=== PATIENT | female | born 1955 | race Caucasian/White ===

== ENCOUNTER → 2016-03-11 | Outpatient (CLI) | payer BC ==
[~2016-03-11] MED LIST: ASPCH81X PO; ATEN-173 PO; ESCI1TAB6 PO; LEVO75TA PO; LOVA20TA4 PO; MULT-506 PO; VITA400C3 PO; [UNRECOGNIZED DRUG - OTHER] PO
[2016-03-11 12:05] LABS: URINE APPEARANCE CLEAR (CLEAR); URINE BILIRUBIN NEG (NEG); URINE COLOR YELLOW; URINE NITRITE NEG (NEG); UROBILINOGEN NEG (NEG)
[2016-03-11 12:08] LABS: MANUAL MICROSCOPIC REQUIRED? NO; REVIEW REQ? NO
== END | disposition home or self-care (01) ==
LOC: C.LABSPEC 11:03
PROVIDERS: ATTEND Family Medicine
DX: Z15.09 Genetic susceptibility to other malignant neoplasm (principal)

== ENCOUNTER → 2016-05-12 | Day surgery (SDC) | payer BC ==
[2016-05-04 10:29] VITALS: Ht 160 cm; Wt 63.6 kg
[~2016-05-12] VITALS: Ht 160 cm; Wt 63.6 kg
[~2016-05-12] MED LIST changes: +AZEL0.15 NAE; +CALC600T9 PO; +HYDR-5688 PO; +LIDOCAINE HCL 2% 2 ML VIAL (20MG/ML) ONE; +LISI-725 PO; +LORA-741 PO; +MIDAZOLAM HCL 1 MG/ML 2ML VIAL ONE; +PROPOFOL IV EMULSION 10 MG/ML 20 ML VIAL IV ONE; +TRAM-10 PO
--- NOTE | 2016-05-12 16:21 | Endo History and Physical ---
History & Physical Date of Service: May 12, 2016. 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 Past Surgical History Hx Cardiac Surgery: No Hx Internal Defibrillator: No Hx Pacemaker: No Hx Abdominal Surgery: Yes ([facility] BSO) Hx of Implantable Prosthesis: No Hx Post-Op Nausea and Vomiting: No Hx Cancer Surgery: No Hx Thoracic Surgery: No Hx Orthopedic: Yes ([facility]) Hx Urinary Tract Surgery: No Family History Colon CA, Polyp Social History Smoking Status: Never Smoker Hx Substance Use: No Hx Alcohol Use: Yes (RARELY) Allergies Coded Allergies: No Known Allergies (Unverified , 05/12/16) Current Medications Reported Home Medications Medications Dose Route/Sig Max Daily Dose Days Date Category Mevacor (Lovastatin) 20 Mg Tab 20 Mg PO QPM 05/04/16 Reported Tenormin (Atenolol) 25 Mg Tab 25 Mg PO QPM 05/04/16 Reported Synthroid (Levothyroxine Sodium) 75 Mcg Tab 75 Mcg PO QAM 05/04/16 Reported Lexapro (Escitalopram Oxalate) 5 Mg Tab 5 Mg PO QAM 05/04/16 Reported Vitamin E 400 Iu (Vitamin E) 400 Unit Cap 400 Inter.unit PO QAM 05/04/16 Reported Multivitamin (Multivitamins) Tab 1 Tab PO QAM 05/04/16 Reported [Liver Health Complex] 2 Tab PO QAM 05/04/16 Reported Aspirin Chewable (Aspirin) 81 Mg Chew 81 Mg PO QAM 05/04/16 Reported Vital Signs Weight (Kilograms): 63.64 Height (Feet): 5 Height (Inches): 3 Date Time Temp Pulse Resp B/P Pulse Ox O2 Delivery O2 Flow Rate FiO2 05/12/16 15:10 36.5 84 20 150/82 99 Room Air Physical Exam General Appearance: WD/WN, no apparent distress Respiratory/Chest: Auscultation: breath sounds normal Cardiovascular: Heart Auscultation: RRR Abdomen: Bowel Sounds: normal Inspection & Palpation: soft, non-distended, no tenderness, guarding & rebound Assessment and Plan Assessment: 60 yo CF who 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 Plan: Proceed with EGD and colonoscopy.
--- NOTE | 2016-05-12 16:28 | GI REPORT ---
Procedure Date: 05/12/2016 4:00 PM Procedure: Upper GI endoscopy Indications: Hereditary nonpolyposis colorectal cancer (Church Syndrome) Medicines: Monitored Anesthesia Care Complications: No immediate complications. Estimated Blood Loss: Estimated blood loss: none. Procedure: Pre-Anesthesia Assessment: - Prior to the procedure, a History and Physical was performed, and patient medications and allergies were reviewed. The patient's tolerance of previous anesthesia was also reviewed. The risks and benefits of the procedure and the sedation options and risks were discussed with the patient. All questions were answered, and informed consent was obtained. Prior Anticoagulants: The patient has taken aspirin, last dose was 7 days prior to procedure. ASA Grade Assessment: II - A patient with mild systemic disease. After reviewing the risks and benefits, the patient was deemed in satisfactory condition to undergo the procedure. After obtaining informed consent, the endoscope was passed under direct vision. Throughout the procedure, the patient's blood pressure, pulse, and oxygen saturations were monitored continuously. The scope was introduced through the mouth, and advanced to the second part of duodenum. The upper GI endoscopy was accomplished without difficulty. The patient tolerated the procedure well. Findings: A non-obstructing Schatzki ring (acquired) was found at the gastroesophageal junction. A small hiatus hernia was present. The examined duodenum was normal. Impression: - Non-obstructing Schatzki ring. - Small hiatus hernia. - Normal examined duodenum. - No specimens collected. Recommendation: - Resume previous diet. - Continue present medications. - Repeat the upper endoscopy in 1 year for surveillance. - Return to primary care physician as previously scheduled. Florencio Rowan, DO 05/12/2016 4:27:49 PM This report has been signed electronically. Note Initiated On: 05/12/2016 4:00 PM I attest to the content of the Intraoperative Record and orders documented therein, exceptions below
--- NOTE | 2016-05-12 16:49 | GI REPORT ---
Procedure Date: 05/12/2016 4:00 PM Procedure: Colonoscopy Indications: High risk colon cancer surveillance: Personal history of hereditary nonpolyposis colorectal cancer (Church Syndrome) Medicines: Monitored Anesthesia Care Complications: No immediate complications. Estimated Blood Loss: Estimated blood loss: none. Procedure: Pre-Anesthesia Assessment: - Prior to the procedure, a History and Physical was performed, and patient medications and allergies were reviewed. The patient's tolerance of previous anesthesia was also reviewed. The risks and benefits of the procedure and the sedation options and risks were discussed with the patient. All questions were answered, and informed consent was obtained. Prior Anticoagulants: The patient has taken aspirin, last dose was 7 days prior to procedure. ASA Grade Assessment: II - A patient with mild systemic disease. After reviewing the risks and benefits, the patient was deemed in satisfactory condition to undergo the procedure. After I obtained informed consent, the scope was passed under direct vision. Throughout the procedure, the patient's blood pressure, pulse, and oxygen saturations were monitored continuously. The On-site loaner was introduced through the anus and advanced to the terminal ileum. The colonoscopy was performed without difficulty. The patient tolerated the procedure well. The quality of the bowel preparation was good. The terminal ileum, ileocecal valve, appendiceal orifice, and rectum were photographed. Findings: Three sessile polyps were found in the transverse colon and in the ascending colon. The polyps were 4 to 6 mm in size. These polyps were removed with a hot snare. Resection was complete, but the polyp tissue was only partially retrieved. Multiple small-mouthed diverticula were found in the sigmoid colon. Impression: - Three 4 to 6 mm polyps in the transverse colon and in the ascending colon, removed with a hot snare. Complete resection. Partial retrieval. - Diverticulosis in the sigmoid colon. Recommendation: - Resume previous diet. - Continue present medications. - Repeat colonoscopy for surveillance based on pathology results. - Return to primary care physician as previously scheduled. Florencio Rowan, DO 05/12/2016 4:48:56 PM This report has been signed electronically. Note Initiated On: 05/12/2016 4:00 PM I attest to the content of the Intraoperative Record and orders documented therein, exceptions below
--- NOTE | 2016-05-12 16:51 | Discharge Instructions ---
Endoscopy Patient Instructions Date / Procedure(s) Performed May 12, 2016. Colonoscopy, EGD Allergy Information Coded Allergies: No Known Allergies (Unverified , 05/12/16) Discharge Date / Findings May 12, 2016. EGD: Hiatal hernia, Non-obstructing Schatzki's Ring Colonoscopy: Colon polyps, Diverticulosis Medication Instructions OK to resume all medications today as prescribed Reported Home Medications Medications Dose Route/Sig Max Daily Dose Days Date Category Mevacor (Lovastatin) 20 Mg Tab 20 Mg PO QPM 05/04/16 Reported Tenormin (Atenolol) 25 Mg Tab 25 Mg PO QPM 05/04/16 Reported Synthroid (Levothyroxine Sodium) 75 Mcg Tab 75 Mcg PO QAM 05/04/16 Reported Lexapro (Escitalopram Oxalate) 5 Mg Tab 5 Mg PO QAM 05/04/16 Reported Vitamin E 400 Iu (Vitamin E) 400 Unit Cap 400 Inter.unit PO QAM 05/04/16 Reported Multivitamin (Multivitamins) Tab 1 Tab PO QAM 05/04/16 Reported [Liver Health Complex] 2 Tab PO QAM 05/04/16 Reported Aspirin Chewable (Aspirin) 81 Mg Chew 81 Mg PO QAM 05/04/16 Reported Provider Instructions Activity Restrictions - No exercising or heavy lifting for 24 hours. - Do not drink alcohol the day of the procedure. - Do not drive a car or operate machinery until the day after the procedure. - Do not make any important decisions or sign important papers in 24 hours after the procedure. Following Day: - Return to full activity which may include returning to work/school. Diet Start your diet with liquids and light foods (jello, soup, juice, toast). Then eat your usual diet if not nauseated. Treatment For Common After Affects For mild abdominal pain, bloating, or excessive gas: - Rest - Eat lightly - Lie on right side Follow-Up Information Follow-up with Ariel as scheduled Anesthesia Information What You Should Know You have had a procedure that required some medicine to reduce anxiety and discomfort. This treatment is called moderate sedation. After receiving the treatment, you may be sleepy, but you will be able to breathe on your own. The effects of the treatment may last for several hours. Follow these instructions along with Activity/Diet recommendations noted above: * Do NOT do anything where dizziness or clumsiness would be dangerous. * Rest quietly at home today, then you can be up and about tomorrow. * Have a responsible person stay with you the rest of today. * You may have had an I.V. today. If so, you may take the dressing off later today. Recommendations Call your doctor if: * Trouble breathing * Continuous vomiting for more than 24 hours * Temperature above 101 degrees * Severe abdominal pain or bloating * Pain not relieved by pain medicine ordered * There is increased drainage or redness from any incision * A large amount of rectal bleeding greater than 2-3 tablespoons. (If you had a polyp/s removed or have hemorrhoids, a small amount of blood - from the rectum is to be expected.) * You have any unanswered questions or concerns. IN THE EVENT OF A SERIOUS EMERGENCY, GO TO THE NEAREST EMERGENCY ROOM Your discharge instructions were prepared by provider Florencio Rowan. Patient Instructions Signature Page Ros Burnett Patient (or Guardian) Signature/Date: I have read and understand the instructions given to me by my caregivers. Caregiver/RN/Doctor Signature/Date: The above-named patient and/or guardian has received patient instructions on this date. + Original Patient Signature Page (only) stays with chart. Please make copy for patient.
--- NOTE | 2016-05-12 17:18 | Anesthesiology Progress Note ---
Anesthesia Post Op Note Date & Time May 12, 2016 at 17:19 Vital Signs Pain Intensity: 0 Vital Signs Past 12 Hours Date Time Temp Pulse Resp B/P Pulse Ox O2 Delivery O2 Flow Rate FiO2 05/12/16 17:09 72 20 150/75 98 Room Air 05/12/16 16:57 73 20 129/70 99 Room Air 05/12/16 15:10 36.5 84 20 150/82 99 Room Air Notes Mental Status: alert / awake / arousable, participated in evaluation Pt Amnestic to Procedure: Yes Nausea / Vomiting: adequately controlled Pain: adequately controlled Airway Patency, RR, SpO2: stable & adequate BP & HR: stable & adequate Hydration State: stable & adequate Anesthetic Complications: no major complications apparent
[2016-05-12 17:26] VITALS: BP 142/70; PULSE 70; O2SAT 99
== END | disposition home or self-care (01) ==
LOC: C.GI 14:15
PROVIDERS: ATTEND Internal Medicine
DX: Z12.11 Encounter for screening for malignant neoplasm of colon (principal); Z15.09 Genetic susceptibility to other malignant neoplasm; D12.2 Benign neoplasm of ascending colon; K22.2 Esophageal obstruction; D12.3 Benign neoplasm of transverse colon; K57.30 Diverticulosis of large intestine without perforation or abscess without bleeding; K44.9 Diaphragmatic hernia without obstruction or gangrene; Z84.81 Family history of carrier of genetic disease

== ENCOUNTER 2016-08-01 14:21 | Emergency (ER) | payer BC ==
[~2016-08-01] VITALS: Ht 160 cm; Wt 67.4 kg
[2016-08-01 14:22] VITALS: TEMP 36.4; Ht 160 cm; Wt 67.4 kg
[2016-08-01] MEDS ORDERED: SODIUM CHLORIDE 0.9% 1000ML 500 ML IV STA (14:41)
[2016-08-01] MEDS ORDERED: ONDANSETRON INJ 2 MG/ML 2 ML VIAL IV STA (14:41)
[2016-08-01] MEDS ORDERED: LORAZEPAM 2 MG/ML 1 ML VIAL IV STA (14:41)
[2016-08-01] MEDS: MoRPHine SULFATE 10 MG/ML CARP/VIAL IV PRN ×2 (14:49→15:57)
[2016-08-01 15:05] LABS: HEMATOCRIT 45.9 % (37-47); INR 0.9 (0.9-1.1); MEAN CELL VOLUME 89.3 fL (80-100); MEAN CORPUSCULAR HGB CONC 32.5 g/dl (32-36); MEAN PLATELET VOLUME 12.5 fL (7.4-10.4); PARTIAL THROMBOPLASTIN RATIO 0.9; PLATELET COUNT 124 K/uL (130-400); PROTHROMBIN TIME (PATIENT) 9.9 SECONDS (9.0-12.0); RED BLOOD COUNT 5.14 M/uL (4.2-5.4)
[2016-08-01 15:12] LABS: BUN/CREATININE RATIO 17.2 (10-20); CREATININE 0.88 mg/dl (0.60-1.20)
--- NOTE | 2016-08-01 15:19 | DIAGNOSTIC IMAGING REPORT ---
HEAD CT NONCONTRAST CT DOSE: 623.48 mGy.cm HISTORY: Mental status change Evaluate for hemorrhage or pathology TECHNIQUE: Multiaxial CT images of the head were performed without the use of intravenous contrast. Comparison: None. Findings: The paranasal sinuses and mastoid air cells are clear. The calvarium and skull base are intact. The ventricles and sulci are within normal limits. There is no mass, hematoma, midline shift, or acute infarct. Impression: No acute intracranial abnormality. Electronically signed by: Bryan Will M.D. 08/01/2016 3:18 PM Dictated Date/Time: 08/01/2016 3:17 PM
[2016-08-01 15:23] VITALS: O2SAT 95
[2016-08-01 15:39] LABS: BASO % 0.5 %; BASO ABS # 0.03 K/uL (0-0.2); COMPLETE YES; EOS % 1.6 %; IG% 0.2 %; LYMPH % 25.5 %; LYMPH ABS # 1.63 K/uL (1.2-3.4); MONO % 5.3 %; NEUT % 66.9 %; PLT ESTIMATE DECREASED
[2016-08-01] MEDS ORDERED: LIDOCAINE HCL 1% 20 ML VIAL ONE (15:55)
[2016-08-01 16:10] LABS: URINE APPEARANCE CLEAR (CLEAR); URINE BILIRUBIN NEG (NEG); URINE COLOR YELLOW; URINE EPITHELIAL CELL AUTO 0-5 /lpf (0-5); URINE NITRITE NEG (NEG); URINE PH 5.5 (4.5-7.5); UROBILINOGEN NEG (NEG); ZZUR CULT IF INDIC CLEAN CATCH NO
[2016-08-01 16:23] LABS: MANUAL MICROSCOPIC REQUIRED? NO; REVIEW REQ? NO
[2016-08-01] MEDS ORDERED: SODIUM CHLORIDE 0.9% 500ML 500 ML IV STA (16:28)
[2016-08-01 16:53] LABS: CSF TOTAL PROTEIN 50.1 mg/dl (15.0-45.0)
[2016-08-01 16:53] LABS: LYME DISEASE AB IGG NEG (NEG); LYME DISEASE AB IGM NEG (NEG)
[2016-08-01 16:57] LABS: CSF APPEARANCE CLEAR; CSF COLOR COLORLESS; CSF XANTHOCHROMIC NO XANTHOCHROMIA
[2016-08-01 17:30] LABS: CSF CHEMISTRY TUBE # 2
--- NOTE | 2016-08-01 17:58 | EMERGENCY ROOM VISIT NOTE ---
History Report prepared by [place]: Rajat Keys Under the Supervision of: Dr. Diogo Spann M.D. First contact with patient: 14:38 Chief Complaint: HEAD PAIN Stated Complaint: SEVERE HEAD PAIN History of Present Illness The patient is a 61 year old female who presents to the Emergency Room with complaints of a constant headache beginning 30 minutes ago. She states "it feels like my head is going to explode". Her headache began suddenly. She has no history of headaches. The patient also complains of left arm pain. She denies any nausea, chest pain, or weakness. She has no history of stroke and is not on any blood thinners. The patient denies any straining, falls, or trauma. 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 The patient has a history of Church syndrome and hypertension. She is on aspirin for the Church syndrome. Source of History: patient Onset: 30 minutes ago Position: head Quality: other ("like my head is going to explode") Timing: constant Associated Symptoms: No chest pain, No nausea, No weakness Note: The patient also complains of left arm pain. Review of Systems See HPI for pertinent positives & negatives. A total of 10 systems reviewed and were otherwise negative. Past Medical & Surgical Medical Problems: (1) HTN (hypertension) (2) Church syndrome Family History No pertinent family history stated. Social History Smoking Status: Never Smoker Housing Status: lives with family Current/Historical Medications Scheduled Aspirin (Aspirin Chewable), 81 MG PO QAM Atenolol (Tenormin), 25 MG PO QPM Escitalopram Oxalate (Lexapro), 5 MG PO QAM Levothyroxine Sodium (Synthroid), 75 MCG PO QAM Lovastatin (Mevacor), 20 MG PO QPM Multivitamin (Multivitamin), 1 TAB PO QAM Vitamin E (Vitamin E 400 Iu), 400 INTER.UNIT PO QAM [L[facility] Health Complex], 2 TAB PO QAM Allergies Coded Allergies: No Known Allergies (Unverified , 05/12/16) Physical Exam Vital Signs Date Time Temp Pulse Resp B/P (MAP) Pulse Ox O2 Delivery O2 Flow Rate FiO2 08/01/16 19:53 75 20 145/70 93 Room Air 6/19/17 19:11 76 08/01/16 18:49 76 18 154/68 93 Room Air 08/01/16 17:39 72 16 123/69 93 Room Air 08/01/16 16:38 80 16 150/77 93 Room Air 08/01/16 15:23 89 18 150/77 95 Room Air 08/01/16 15:23 95 Room Air 08/01/16 15:22 89 08/01/16 14:22 36.4 107 20 199/95 95 Room Air Physical Exam GENERAL: Patient is in no acute distress. HEENT: No acute trauma, normocephalic atraumatic, mucous membranes moist, no nasal congestion, no scleral icterus. PERRL. NECK: No stridor, no adenopathy, no meningismus, trachea is midline. LUNGS: Clear to auscultation bilaterally, no wheeze, no rhonchi, breath sounds equal. HEART: Without murmurs gallops or rubs, regular rate and rhythm. ABDOMEN: Soft, nontender, bowel sounds positive, no hernias, no peritonitis. EXTREMITIES: No cyanosis or edema, full range of motion of all the joints without pain or difficulty, no signs for acute trauma. NEUROLOGIC: Oriented x 3, no acute motor or sensory deficits, no focal weakness. SKIN: No rash, no jaundice, no diaphoresis. Medical Decision & Procedures ER Provider Diagnostic Interpretation: MRI/CT results as stated below per my review and radiologist interpretation: HEAD CT NONCONTRAST Findings: The paranasal sinuses and mastoid air cells are clear. The calvarium and skull base are intact. The ventricles and sulci are within normal limits. There is no mass, hematoma, midline shift, or acute infarct. Impression: No acute intracranial abnormality. Electronically signed by: Bryan Will M.D. MRI OF THE BRAIN WITHOUT AND WITH IV CONTRAST FINDINGS: Sagittal T1, axial diffusion, proton density and T2 weighted axial, coronal FLAIR, and pre and post axial T1-weighted images were acquired. These were supplemented with post gadolinium coronal T1 weighted images. No intra or extra-axial mass lesions are visualized. Axial diffusion-weighted images reveal no evidence of acute or subacute infarction. There is no evidence of ventricular dilatation. Proton density T2-weighted and FLAIR images reveal scattered foci of increased T2 signal within the white matter, likely on a small vessel basis. There are no abnormal flow voids. There is a tiny developmental venous anomaly within the right frontal lobe. IMPRESSION: 1. No evidence of intracranial mass 2. No evidence of acute or subacute infarction 3. Tiny developmental venous anomaly within the right frontal lobe 4. Scattered foci of increased T2 signal within the white matter, likely on a small vessel basis Electronically signed by: Ghassan White M.D. MR ANGIOGRAPHY OF THE [place] NO CONTRAST A 3-D [id number] MR angiographic sequence of the [place] was performed. Both the source and projection images were reviewed. The right vertebral artery is dominant. There are no major intracranial branch occlusions. 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 Electronically signed by: Ghassan White M.D. Laboratory Results 08/01/16 14:30 Red Blood Count 5.14, Mean Corpuscular Volume 89.3, Mean Corpuscular Hemoglobin 29.0, Mean Corpuscular Hemoglobin Concent 32.5, Mean Platelet Volume 12.5, Neutrophils (%) (Auto) 66.9, Lymphocytes (%) (Auto) 25.5, Monocytes (%) (Auto) 5.3, Eosinophils (%) (Auto) 1.6, Basophils (%) (Auto) 0.5, Neutrophils # (Auto) 4.29, Lymphocytes # (Auto) 1.63, Monocytes # (Auto) 0.34, Eosinophils # (Auto) 0.10, Basophils # (Auto) 0.03 08/01/16 14:30 Test 08/01/16 14:30 08/01/16 16:00 08/01/16 16:30 White Blood Count 6.40 K/uL (4.8-10.8) Red Blood Count 5.14 M/uL (4.2-5.4) Hemoglobin 14.9 g/dL (12.0-16.0) Hematocrit 45.9 % (37-47) Mean Corpuscular Volume 89.3 fL (80-100) Mean Corpuscular Hemoglobin 29.0 pg (25-34) Mean Corpuscular Hemoglobin Concent 32.5 g/dl (32-36) Platelet Count 124 K/uL (130-400) Mean Platelet Volume 12.5 fL (7.4-10.4) Neutrophils (%) (Auto) 66.9 % Lymphocytes (%) (Auto) 25.5 % Monocytes (%) (Auto) 5.3 % Eosinophils (%) (Auto) 1.6 % Basophils (%) (Auto) 0.5 % Neutrophils # (Auto) 4.29 K/uL (1.4-6.5) Lymphocytes # (Auto) 1.63 K/uL (1.2-3.4) Monocytes # (Auto) 0.34 K/uL (0.11-0.59) Eosinophils # (Auto) 0.10 K/uL (0-0.5) Basophils # (Auto) 0.03 K/uL (0-0.2) RDW Standard Deviation 44.8 fL (36.4-46.3) RDW Coefficient of Variation 13.6 % (11.5-14.5) Immature Granulocyte % (Auto) 0.2 % Immature Granulocyte # (Auto) 0.01 K/uL (0.00-0.02) Platelet Estimate DECREASED Erythrocyte Sedimentation Rate 23 mm/hr (0-21) Prothrombin Time 9.9 SECONDS (9.0-12.0) Prothromb Time International Ratio 0.9 (0.9-1.1) Activated Partial Thromboplast Time 23.8 SECONDS (21.0-31.0) Partial Thromboplastin Ratio 0.9 Anion Gap 10.0 mmol/L (3-11) Est Creatinine Clear Calc Drug Dose 61.1 ml/min Estimated GFR () 81.6 Estimated GFR (Non- 70.4 BUN/Creatinine Ratio 17.2 (10-20) Calcium Level 9.0 mg/dl (8.5-10.1) Lyme Disease IgG Antibody NEG (NEG) Lyme Disease IgM Antibody NEG (NEG) Urine Color YELLOW Urine Appearance CLEAR (CLEAR) Urine pH 5.5 (4.5-7.5) Urine Specific [place] 1.010 (1.000-1.030) Urine Protein NEG (NEG) Urine Glucose (UA) NEG (NEG) Urine Ketones NEG (NEG) Urine Occult Blood TRACE (NEG) Urine Nitrite NEG (NEG) Urine Bilirubin NEG (NEG) Urine Urobilinogen NEG (NEG) Urine Leukocyte Esterase NEG (NEG) Urine WBC (Auto) 0 /hpf (0-5) Urine RBC (Auto) 0-4 /hpf (0-4) Urine Hyaline Casts (Auto) 0 /lpf (0-5) Urine Epithelial Cells (Auto) 0-5 /lpf (0-5) Urine Bacteria (Auto) NEG (NEG) CSF Color COLORLESS CSF Appearance CLEAR CSF WBC 2 /uL (0-5) CSF RBC 0 /uL (0) CSF Xanthrochromic NO XANTHOCHROMIA CSF Cell Count Tube # 4 CSF Chemistry Tube # 2 CSF Glucose 65 mg/dl (40-70) CSF Total Protein 50.1 mg/dl (15.0-45.0) Laboratory results reviewed by me. Medications Administered Medications (Trade) Dose Ordered Sig/Violet Route Start Time Stop Time Status Last Admin Dose Admin Sodium Chloride 500 ml @ 999 mls/hr Q31M STAT IV 08/01/16 14:41 08/01/16 15:11 DC 08/01/16 14:48 999 MLS/HR Ondansetron HCl (Zofran Inj) 4 mg NOW STAT IV 08/01/16 14:41 08/01/16 14:44 DC 08/01/16 14:49 4 MG Morphine Sulfate (MoRPHine SULFATE INJ) 6 mg Q15M PRN IV 08/01/16 14:45 08/01/16 20:51 DC 08/01/16 15:57 6 MG Lorazepam (Ativan Inj) 0.5 mg NOW STAT IV 08/01/16 14:41 08/01/16 14:44 DC 08/01/16 14:49 0.5 MG Sodium Chloride 500 ml @ 999 mls/hr Q31M STAT IV 08/01/16 16:28 08/01/16 16:58 DC 08/01/16 16:37 999 MLS/HR Oxycodone HCl (Roxicodone Immediate Rel 5MG Home Pack) 1 homepack UD ONCE PO 08/01/16 20:00 08/01/16 20:01 DC 08/01/16 20:01 1 HOMEPACK Procedure Lumbar Puncture Indication: Severe headache. Verbal consent was obtained after the risks and benefits were explained, including but not limited to headache, bleeding/clotting, scarring, infection, pain, and bone/joint/nerve damage. At this time, the risks of the procedure are less than the risks of NOT performing the procedure. A time out was taken and the correct patient and site identified. The patient was placed in the seated position and the back was prepped with betadine and draped in the standard fashion. The intervertebral space was identified, anesthetized locally with 1% lidocaine without epinephrine, and the spinal needle was inserted through the skin with the bevel parallel to the dural fibers. The needle was carefully advanced into the lumbar cistern and 4 tubes of clear CSF was obtained. The stylet was replaced and the needle was removed. A bandaid was placed and the patient was placed in the supine position. The patient tolerated the procedure well and there were no complications. ECG Indication: other (headache) Rate (beats per minute): 96 Rhythm: normal sinus Findings: no acute ischemic change, no ectopy ED Course 1440: The patient was evaluated in room A11B. A complete history and physical exam was performed. 1441: Ordered Ativan Inj 0.5 mg IV, Zofran Inj 4 mg IV, Sodium Chloride 500 ml @ 999 mls/hr IV. 1445: Ordered Morphine Sulfate 6 mg IV. 1553: I reassessed the patient. I informed her of her test results. She feels a little better. We discussed the prospect of a lumbar puncture and she verbalized agreement and understanding. 1611: I conducted the lumbar puncture. See the procedure note for details. 1830: Ordered Gadavist 6 mmol IV. 1911: I spoke with the patient and updated her on her results. 1946: Reevaluated the patient. Discussed results and discharge instructions: she verbalized understanding and agreement. The patient is ready for discharge. 1999: Ordered Roxicodone Immediate Rel 5 mg homepack PO. Medical Decision The patient is a 61 year old female who presents to the ED with complaints of sudden onset headache. Differential diagnoses considered include migraine headache, tension headache, meningitis, subarachnoid hemorrhage, subdural hematoma, aneurysm, infection, coagulopathy, and clot. Blood Pressure Screening: Patient was found to have an elevated blood pressure and was referred to their primary doctor for recheck and further treatment. Medication Reconciliation: I attest that I have personally reviewed the patient' s current medication list. There is no leukocytosis or concerning anemia. No significant electrolyte abnormality or kidney failure. Lyme disease testing was negative. Brain CT showed no acute bleed or mass effect. EKG showed a normal sinus rhythm, no acute ischemia. Urinalysis did not show evidence for infection. Brain MRI did not show any stroke or mass lesion. Brain MRA showed a left-sided internal carotid aneurysm which was not leaking. Lumbar puncture reveals no evidence for meningitis or for bleeding. The patient received IV saline, she received IV Ativan, IV Zofran and IV morphine. She feels significantly improved. The patient is now looking well, she feels markedly better. At this point, the cause for the headache is unclear, certainly migraine is a possibility. I discussed the aneurysm finding with the neurosurgeon from [facility] in [place]. This was not thought to be the cause of her difficulty and the aneurysm was too small and in the wrong place to be of major concern. The patient will follow with them as an outpatient. The patient was comfortable with home care. She will follow with her doctor this week. If worsening, she can return. Consults Time Called: 1904 Consulting Physician: Dr. White -Radiology Returned Call: 1907 I discussed the patient's case with Dr. White. He states that he does not believe that the aneurysm seen on MRI is the source of the patient's symptoms as it is relatively small. He recommends consultation with neurosurgery. Additional Consults: Time Called: 1925 Consulted Physician: Dr. Garcia -Neuroendovascular Surgery Returned Call: 1928 Additional Comments: Discussed the patient's case with Dr. Garcia. He states that the aneurysm is not the source of the patient's symptoms, and will likely never be a major concern. He recommends outpatient follow up. Impression Primary Impression: Headache Scribe Attestation The scribe's documentation has been prepared under my direction and personally reviewed by me in its entirety. I confirm that the note above accurately reflects all work, treatment, procedures, and medical decision making performed by me. Departure Information Dispostion Home / Self-Care Referrals No Doctor, Assigned (PCP) Forms HOME CARE DOCUMENTATION FORM, IMPORTANT VISIT INFORMATION, WORK / SCHOOL INSTRUCTIONS Patient Instructions My [facility] [employer] Additional Instructions motrin/tylenol for pain oxy ir 1 tab every 4 hours for severe pain rest stay well hydrated follow with neurosurgery as discussed follow with matias yung this week return if worsening testing here was ok as we discussed
--- NOTE | 2016-08-01 18:28 | DIAGNOSTIC IMAGING REPORT ---
MR ANGIOGRAPHY OF THE [place] NO CONTRAST CLINICAL HISTORY: Severe headache COMPARISON STUDY: Noncontrast head CT dated 08/01/2016 A 3-D [id number] MR angiographic sequence of the [place] was performed. Both the source and projection images were reviewed. The right vertebral artery is dominant. There are no major intracranial branch occlusions. 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 Electronically signed by: Ghassan White M.D. 08/01/2016 6:27 PM Dictated Date/Time: 08/01/2016 6:20 PM
[2016-08-01] MEDS ORDERED: GADAVIST IV PRN (18:30)
--- NOTE | 2016-08-01 18:32 | DIAGNOSTIC IMAGING REPORT ---
MRI OF THE BRAIN WITHOUT AND WITH IV CONTRAST CLINICAL HISTORY: worst headache of life COMPARISON STUDY: Noncontrast head CT dated 08/01/2016 TECHNIQUE: MRI of the brain was performed from the vertex to the skull base utilizing various T1 and T2 weighted sequences. Following the IV administration of 6 mL of Gadavist contrast, additional enhanced images were obtained. FINDINGS: Sagittal T1, axial diffusion, proton density and T2 weighted axial, coronal FLAIR, and pre and post axial T1-weighted images were acquired. These were supplemented with post gadolinium coronal T1 weighted images. No intra or extra-axial mass lesions are visualized. Axial diffusion-weighted images reveal no evidence of acute or subacute infarction. There is no evidence of ventricular dilatation. Proton density T2-weighted and FLAIR images reveal scattered foci of increased T2 signal within the white matter, likely on a small vessel basis. There are no abnormal flow voids. There is a tiny developmental venous anomaly within the right frontal lobe. IMPRESSION: 1. No evidence of intracranial mass 2. No evidence of acute or subacute infarction 3. Tiny developmental venous anomaly within the right frontal lobe 4. Scattered foci of increased T2 signal within the white matter, likely on a small vessel basis Electronically signed by: Ghassan White M.D. 08/01/2016 6:30 PM Dictated Date/Time: 08/01/2016 6:28 PM
[2016-08-01 19:53] VITALS: BP 145/70; PULSE 75; O2SAT 93
[2016-08-01] MEDS ORDERED: OXYCODONE IR HOME PACK PO ONE (20:00)
[2016-08-07] MEDS ORDERED: ESCI1TAB6 PO (10:29)
[2016-08-07] MEDS ORDERED: ASPCH81X PO (10:29)
[2016-08-07] MEDS ORDERED: VITA400C3 PO (10:29)
[2016-08-07] MEDS ORDERED: [UNRECOGNIZED DRUG - OTHER] PO (10:29)
[2016-08-07] MEDS ORDERED: LEVO75TA PO (10:29)
[2016-08-07] MEDS ORDERED: LOVA20TA4 PO (10:29)
[2016-08-07] MEDS ORDERED: ATEN-173 PO (10:29)
[2016-08-07] MEDS ORDERED: MULT-506 PO (10:29)
[2017-01-03] MEDS ORDERED: AZEL0.15 NAE (08:15)
[2017-01-03] MEDS ORDERED: CALC600T9 PO (08:15)
[2017-01-03] MEDS ORDERED: LORA-741 PO (08:15)
[2017-01-03] MEDS ORDERED: LISI-725 PO (08:15)
[2017-01-03] MEDS ORDERED: TRAM-10 PO (08:15)
[2017-01-09] MEDS ORDERED: HYDR-5688 PO (10:53)
== END 2016-08-01 20:08 | disposition home or self-care (01) ==
LOC: C.EDB 14:23 → C.EDA 20:08
DX: R51 Headache (principal); Z15.09 Genetic susceptibility to other malignant neoplasm; I10 Essential (primary) hypertension; Z79.82 Long term (current) use of aspirin; Z79.899 Other long term (current) drug therapy

== ENCOUNTER 2016-08-07 16:31 | Emergency (ER) | payer BC ==
[~2016-08-07] VITALS: Ht 160 cm; Wt 62.0 kg
[~2016-08-07 16:31] MED LIST changes: -AZEL0.15 NAE; -CALC600T9 PO; -HYDR-5688 PO; -LIDOCAINE HCL 2% 2 ML VIAL (20MG/ML) ONE; -LISI-725 PO; -LORA-741 PO; -MIDAZOLAM HCL 1 MG/ML 2ML VIAL ONE; -PROPOFOL IV EMULSION 10 MG/ML 20 ML VIAL IV ONE; -TRAM-10 PO
[2016-08-07 16:38] VITALS: TEMP 36.8; Ht 160 cm; Wt 62.0 kg
[2016-08-07] MEDS ORDERED: SODIUM CHLORIDE 0.9% 1000ML 1,000 ML IV STA (16:41)
[2016-08-07] MEDS ORDERED: PROCHLORPERAZINE 5 MG/ML 2 ML VIAL IV STA (16:41)
[2016-08-07] MEDS ORDERED: DiphenhydrAMINE HCL 50 MG/ML VIAL IV STA (16:41)
[2016-08-07 17:00] LABS: PROTHROMBIN TIME (PATIENT) 10.3 SECONDS (9.0-12.0)
[2016-08-07 17:09] LABS: BUN/CREATININE RATIO 18.5 (10-20); CALCIUM 9.6 mg/dl (8.5-10.1); CREATININE 0.78 mg/dl (0.60-1.20); POTASSIUM 3.8 mmol/L (3.5-5.1)
[2016-08-07 17:17] LABS: BASO % 0.9 %; BASO ABS # 0.06 K/uL (0-0.2); COMPLETE YES; EOS % 3.3 %; HEMATOCRIT 43.5 % (37-47); IG% 0.2 %; LYMPH % 31.5 %; LYMPH ABS # 2.08 K/uL (1.2-3.4); MEAN CELL VOLUME 88.4 fL (80-100); MEAN CORPUSCULAR HEMOGLOBIN 29.3 pg (25-34); MEAN CORPUSCULAR HGB CONC 33.1 g/dl (32-36); MEAN PLATELET VOLUME 12.6 fL (7.4-10.4); MONO % 6.1 %; PLATELET COUNT 122 K/uL (130-400); PLT ESTIMATE DECREASED; RED BLOOD COUNT 4.92 M/uL (4.2-5.4)
--- NOTE | 2016-08-07 17:28 | DIAGNOSTIC IMAGING REPORT ---
HEAD CT NONCONTRAST CT DOSE: 623.48 mGy.cm HISTORY: Mental status change SHORT eval for bleed TECHNIQUE: Multiaxial CT images of the head were performed without the use of intravenous contrast. Comparison: 08/01/2016 Findings: The paranasal sinuses and mastoid air cells are clear. The calvarium and skull base are intact. The ventricles and sulci are within normal limits. There is no mass, hematoma, midline shift, or acute infarct. Impression: No acute intracranial abnormality. No change from the prior exam. Electronically signed by: Bryan Will M.D. 08/07/2016 5:27 PM Dictated Date/Time: 08/07/2016 5:25 PM
[2016-08-07 18:02] VITALS: BP 140/69; PULSE 81; O2SAT 93
--- NOTE | 2016-08-07 20:10 | EMERGENCY ROOM VISIT NOTE ---
History Report prepared by [place]: Kisha Landis Under the Supervision of: Dr. Eduar Osman M.D. First contact with patient: 16:34 Stated Complaint: HEADACHE History of Present Illness The patient is a 61 year old female who presents to the Emergency Room with complaints of a headache beginning 1 hour prior to arrival. The patient describes the pain as pounding and that it is "all over her head." She states that she was sitting on her couch and that the headache just came on suddenly. She states that her headache does not get worse with light. She states this feels identical to her previous headache when she was evaluated here in the ED. She denies any injury. The patient denies having a fever, vomiting, and numbness in her extremities. Source of History: patient Onset: 1 hour prior to arrival Position: head Symptom Intensity: severe Quality: other (pounding) Timing: other (sudden) Associated Symptoms: No fevers, No vomiting, No numbness (in extremities ) Review of Systems See HPI for pertinent positives & negatives. A total of 10 systems reviewed and were otherwise negative. Past Medical & Surgical Medical Problems: (1) HTN (hypertension) (2) Chruch syndrome Surgical Problems: (1) H/O abdominal surgery Family History FH: colon cancer Social History Smoking Status: Never Smoker Alcohol Use: occasionally Housing Status: lives with family Current/Historical Medications Scheduled Aspirin (Aspirin Chewable), 81 MG PO QAM Atenolol (Tenormin), 25 MG PO QPM Escitalopram Oxalate (Lexapro), 5 MG PO QAM Levothyroxine Sodium (Synthroid), 75 MCG PO QAM Lovastatin (Mevacor), 20 MG PO QPM Multivitamin (Multivitamin), 1 TAB PO QAM Vitamin E (Vitamin E 400 Iu), 400 INTER.UNIT PO QAM [Liver Health Complex], 2 TAB PO QAM Allergies Coded Allergies: No Known Allergies (Unverified , 05/12/16) Physical Exam Vital Signs Date Time Temp Pulse Resp B/P (MAP) Pulse Ox O2 Delivery O2 Flow Rate FiO2 08/07/16 18:02 81 17 140/69 93 08/07/16 17:22 81 17 140/69 93 Room Air 08/07/16 16:41 97 08/07/16 16:38 36.8 96 17 172/84 98 Room Air Physical Exam Constitutional: Vital signs reviewed. Eyes: Pupils are equal round reactive to light. Conjunctiva are noninjected. ENT: Pharynx is clear without erythema or exudate. Mucous membranes are moist. Neck supple without meningeal signs. Respiratory: Clear to auscultation bilaterally. Breath sounds are equal bilaterally. Cardiovascular: Regular rate and rhythm. No rubs or gallops. GI: Soft, nondistended and nontender. Bowel sounds are present. Musculoskeletal: No peripheral edema. No lower extremity tenderness. Integumentary: No cyanosis. Neurological: The patient is awake and alert. Cranial nerves II-XII are intact. Motor is 5 out of 5 all extremities. Sensation is intact to light touch all extremities. Normal speech. No pronator drift. Psychiatric: Anxious. Medical Decision & Procedures ER Provider Diagnostic Interpretation: CT results as stated below per my review and radiologist interpretation. HEAD CT NONCONTRAST CT DOSE: 623.48 mGy.cm HISTORY: Mental status change SHORT eval for bleed TECHNIQUE: Multiaxial CT images of the head were performed without the use of intravenous contrast. Comparison: 08/01/2016 Findings: The paranasal sinuses and mastoid air cells are clear. The calvarium and skull base are intact. The ventricles and sulci are within normal limits. There is no mass, hematoma, midline shift, or acute infarct. Impression: No acute intracranial abnormality. No change from the prior exam. Electronically signed by: Bryan Will M.D. 08/07/2016 5:27 PM Dictated Date/Time: 08/07/2016 5:25 PM Laboratory Results 08/07/16 15:53 Red Blood Count 4.92, Mean Corpuscular Volume 88.4, Mean Corpuscular Hemoglobin 29.3, Mean Corpuscular Hemoglobin Concent 33.1, Mean Platelet Volume 12.6, Neutrophils (%) (Auto) 58.0, Lymphocytes (%) (Auto) 31.5, Monocytes (%) (Auto) 6.1, Eosinophils (%) (Auto) 3.3, Basophils (%) (Auto) 0.9, Neutrophils # (Auto) 3.83, Lymphocytes # (Auto) 2.08, Monocytes # (Auto) 0.40, Eosinophils # (Auto) 0.22, Basophils # (Auto) 0.06 08/07/16 15:53 Test 08/07/16 15:53 White Blood Count 6.60 K/uL (4.8-10.8) Red Blood Count 4.92 M/uL (4.2-5.4) Hemoglobin 14.4 g/dL (12.0-16.0) Hematocrit 43.5 % (37-47) Mean Corpuscular Volume 88.4 fL (80-100) Mean Corpuscular Hemoglobin 29.3 pg (25-34) Mean Corpuscular Hemoglobin Concent 33.1 g/dl (32-36) Platelet Count 122 K/uL (130-400) Mean Platelet Volume 12.6 fL (7.4-10.4) Neutrophils (%) (Auto) 58.0 % Lymphocytes (%) (Auto) 31.5 % Monocytes (%) (Auto) 6.1 % Eosinophils (%) (Auto) 3.3 % Basophils (%) (Auto) 0.9 % Neutrophils # (Auto) 3.83 K/uL (1.4-6.5) Lymphocytes # (Auto) 2.08 K/uL (1.2-3.4) Monocytes # (Auto) 0.40 K/uL (0.11-0.59) Eosinophils # (Auto) 0.22 K/uL (0-0.5) Basophils # (Auto) 0.06 K/uL (0-0.2) RDW Standard Deviation 43.9 fL (36.4-46.3) RDW Coefficient of Variation 13.5 % (11.5-14.5) Immature Granulocyte % (Auto) 0.2 % Immature Granulocyte # (Auto) 0.01 K/uL (0.00-0.02) Platelet Estimate DECREASED Erythrocyte Sedimentation Rate 24 mm/hr (0-21) Prothrombin Time 10.3 SECONDS (9.0-12.0) Prothromb Time International Ratio 1.0 (0.9-1.1) Activated Partial Thromboplast Time 26.4 SECONDS (21.0-31.0) Partial Thromboplastin Ratio 1.0 Anion Gap 10.0 mmol/L (3-11) Est Creatinine Clear Calc Drug Dose 61.8 ml/min Estimated GFR () 94.4 Estimated GFR (Non- 81.5 BUN/Creatinine Ratio 18.5 (10-20) Calcium Level 9.6 mg/dl (8.5-10.1) Laboratory results as reviewed by me. Medications Administered Medications (Trade) Dose Ordered Sig/Violet Route Start Time Stop Time Status Last Admin Dose Admin Sodium Chloride 1,000 ml @ 999 mls/hr Q1H1M STAT IV 08/07/16 16:41 08/07/16 17:41 DC 08/07/16 16:48 999 MLS/HR Diphenhydramine HCl (Benadryl Inj) 50 mg NOW STAT IV 08/07/16 16:41 08/07/16 16:43 DC 08/07/16 16:48 50 MG Prochlorperazine Edisylate (Compazine Inj) 10 mg NOW STAT IV 08/07/16 16:41 08/07/16 16:43 DC 08/07/16 16:47 10 MG ED Course 1636: The patient was evaluated in room C10. A complete history and physical exam was performed. 1641: Ordered Compazine Inj 10 mg IV, Benadryl Inj 50 mg IV, Sodium Chloride 1, 000 ml @ 999 mls/hr IV. 1733: The patient states that she feels much better and that her headache is rated only at a 3/10 now. I discussed the test results with her. 1745: Upon reevaluation, the patient appeared to have improvement of her symptoms. I discussed thad's findings with her. She verbalized agreement of the treatment plan. She was discharged home. Medical Decision This is a 61-year-old female who presents with a headache. Differential diagnosis includes migraine headache, tension headache, intracranial mass, intracranial hemorrhage, aneurysm. I did perform a limited focused review of portions of the patient's old chart on the electronic medical record. The patient was here August 01 for a severe headache. She had an MRI of her brain with contrast done which showed no acute abnormality. 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 Lyme disease testing was negative. Her lumbar puncture showed no signs of infection. The physician discussed aneurysm with neurology at [place], who didn't feel like it was an issue. Blood Pressure Screening: Patient was found to have an elevated blood pressure and was referred to their primary doctor for recheck and further treatment. Medication Reconciliation: I attest that I have personally reviewed the patient' s current medication list. I did evaluate the patient as noted above. The patient is presenting with a headache identical to her prior headache on August 01. She had a extensive workup here including MRI and MRA of the brain as well as lumbar puncture. I did treat the patient with IV Compazine, Benadryl and normal saline. I did order and review the patient's blood work as noted in the electronic medical record. She has chronic thrombocytopenia. ESR is not significantly elevated or changed from prior visit. I did order a CT of the head. I did review the images myself as well as the radiology report as described above. I did reevaluate the patient. She states she is feeling much better and rates her headache only 3 out of 10 in severity. At this time I did not see any indication for repeat MRI or lumbar puncture. She was advised, however, to follow up very closely with her regular physician for further evaluation. She was discharged in good condition. Impression Primary Impression: Acute headache Additional Impression: Thrombocytopenia Scribe Attestation The scribe's documentation has been prepared under my direct and personally reviewed by me in its entirety. I confirm that the note above accurately reflects all work, treatment, procedures, and medical decision making performed by me. Departure Information Dispostion Home / Self-Care Referrals Elisabeth George DO (PCP) Forms HOME CARE DOCUMENTATION FORM, IMPORTANT VISIT INFORMATION Patient Instructions Headache Pain, [facility], Thrombocytopenia Additional Instructions You have been examined and treated today on an emergency basis only. This is not a substitute for, or an effort to provide, complete comprehensive medical care. It is impossible to recognize and treat all injuries or illnesses in a single emergency department visit. It is therefore important that you follow up closely with your physician tomorrow per your appointment. Return for worsening symptoms or if you develop fever, vomiting, or any other concerning symptoms. Problem Qualifiers Primary Impression: Acute headache Headache type: unspecified Intractability: not intractable Qualified Codes : R51 - Headache
[2017-01-03] MEDS ORDERED: TRAM-10 PO (08:15)
[2017-01-03] MEDS ORDERED: AZEL0.15 NAE (08:15)
[2017-01-03] MEDS ORDERED: LORA-741 PO (08:15)
[2017-01-03] MEDS ORDERED: LISI-725 PO (08:15)
[2017-01-03] MEDS ORDERED: CALC600T9 PO (08:15)
[2017-01-09] MEDS ORDERED: HYDR-5688 PO (10:53)
== END 2016-08-07 18:02 | disposition home or self-care (01) ==
LOC: EDBD 16:31 → C.EDC 16:32
DX: R51 Headache (principal); D69.6 Thrombocytopenia, unspecified; I10 Essential (primary) hypertension; Z98.890 Other specified postprocedural states; Z80.0 Family history of malignant neoplasm of digestive organs; Z79.82 Long term (current) use of aspirin

== ENCOUNTER → 2016-11-09 | Outpatient (CLI) | payer BC ==
[2016-11-09 13:27] LABS: BLOOD UREA NITROGEN 14 mg/dl (7-18); BUN/CREATININE RATIO 19.3 (10-20); CALCIUM 9.4 mg/dl (8.5-10.1); CARBON DIOXIDE 27 mmol/L (21-32); CHLORIDE 105 mmol/L (98-107); CREATININE 0.73 mg/dl (0.60-1.20); GLUCOSE 97 mg/dl (70-99); POTASSIUM 4.7 mmol/L (3.5-5.1); SODIUM 139 mmol/L (136-145)
[2016-11-09 13:35] LABS: HEMATOCRIT 42.9 % (37-47); MEAN CELL VOLUME 89.4 fL (80-100); MEAN CORPUSCULAR HEMOGLOBIN 30.2 pg (25-34); MEAN CORPUSCULAR HGB CONC 33.8 g/dl (32-36); MEAN PLATELET VOLUME 13.1 fL (7.4-10.4); PLATELET COUNT 119 K/uL (130-400); WHITE BLOOD COUNT 4.76 K/uL (4.8-10.8)
[2016-11-09 13:39] LABS: BASO % 0.6 %; BASO ABS # 0.03 K/uL (0-0.2); EOS % 3.2 %; GIANT PLATELETS 1+; IG% 0.2 %; LYMPH % 28.4 %; LYMPH ABS # 1.35 K/uL (1.2-3.4); MONO % 9.5 %; NEUT % 58.1 %; PLT ESTIMATE NORMAL
[2016-11-09 13:46] LABS: ALB/GLOB RATIO 1.1 (0.9-2); ALKALINE PHOSPHATASE 95 U/L (45-117); ALT/SGPT 69 U/L (12-78); AST/SGOT 35 U/L (15-37); CHOLESTEROL 195 mg/dl (0-200); CHOLESTEROL/HDL RATIO 3.8; HDL CHOLESTEROL 52 mg/dl; LDL CHOLESTEROL CALCULATED 109 mg/dl; THYROID STIMULATING HORMONE 0.525 uIu/ml (0.300-4.500); TRIGLYCERIDES 172 mg/dl (0-150); VERY LOW DENSITY LIPOPROT CALC 34 mg/dl
[2016-11-09 22:10] LABS: COMPLETE YES
== END | disposition home or self-care (01) ==
LOC: C.LABPBG 09:07
PROVIDERS: ATTEND Family Medicine
DX: I10 Essential (primary) hypertension (principal); E03.9 Hypothyroidism, unspecified; E78.5 Hyperlipidemia, unspecified; D69.6 Thrombocytopenia, unspecified

== ENCOUNTER 2017-01-09 06:14 | Observation (INO) | payer BC ==
[2017-01-03 08:17] VITALS: BMI 25.0
--- NOTE | 2017-01-03 08:47 | PAT Medication Instructions ---
Service Date Jan 03, 2017. Current Home Medication List Aspirin (Aspirin Chewable), 81 MG PO QPM Atenolol (Tenormin), 50 MG PO QAM Azelastine Hcl (Astepro), 2 SPRY FRANCES BID Calcium Carbonate-Vitamin D (Calcium + D), 1 TAB PO QAM Escitalopram Oxalate (Lexapro), 5 MG PO QAM Levothyroxine Sodium (Synthroid), 75 MCG PO QAM Lisinopril (Zestril), 20 MG PO HS Lorazepam (Ativan), 0.5 MG PO BID PRN for RN Lovastatin (Mevacor), 20 MG PO QPM Multivitamin (Multivitamin), 1 TAB PO QAM Tramadol (Ultram), 50 MG PO Q8H PRN for Pain Vitamin E (Vitamin E 400 Iu), 400 INTER.UNIT PO QAM [Liver Health Complex], 2 TAB PO QAM Medication Instructions For Your Scheduled Surgery - Hold the following medications starting today: Vitamin E (Vitamin E 400 Iu), 400 INTER.UNIT PO QAM - Contact your surgeon for instructions for: Aspirin (Aspirin Chewable), 81 MG PO QPM - Hold the following medications the night before surgery: Lisinopril (Zestril), 20 MG PO HS - Hold the following medications the morning of surgery: [Liver Health Complex], 2 TAB PO QAM Multivitamin (Multivitamin), 1 TAB PO QAM Calcium Carbonate-Vitamin D (Calcium + D), 1 TAB PO QAM - Take the following medications the morning of surgery with a sip of water: Tramadol (Ultram), 50 MG PO Q8H PRN for Pain (if needed) Escitalopram Oxalate (Lexapro), 5 MG PO QAM Levothyroxine Sodium (Synthroid), 75 MCG PO QAM Atenolol (Tenormin), 50 MG PO QAM Lorazepam (Ativan), 0.5 MG PO BID PRN for RN (if needed) Azelastine Hcl (Astepro), 2 SPRY FRANCES BID - Take the following medications as scheduled the night before surgery: Tramadol (Ultram), 50 MG PO Q8H PRN for Pain (if needed) Lorazepam (Ativan), 0.5 MG PO BID PRN for RN (if needed) Lovastatin (Mevacor), 20 MG PO QPM Azelastine Hcl (Astepro), 2 SPRY FRANCES BID If you have any questions please call us at [phone] or [phone] or [phone]
[2017-01-09] VITALS (8 sets, daily range): BP systolic 114–138; BP diastolic 64–76; PULSE 61–66; TEMP 36.5–36.9; O2SAT 91–98; Ht 162.6 cm; Wt 67.3 kg
[~2017-01-09] VITALS: Ht 162.6 cm; Wt 67.3 kg
[~2017-01-09 06:14] MED LIST changes: +AZEL0.15 NAE; +CALC600T9 PO; +CEFUROXIME IV 1,500 MG in DEXTROSE 5% 100ML IV SCH; +LACTATED RINGER'S 1000ML 1,000 ML IV SCH; +LISI-725 PO; +LORA-741 PO; +TRAM-10 PO
[2017-01-09] MEDS ORDERED: FENTANYL CITRATE INJ 50 MCG/1 ML 2 ML VIAL ONE (07:38)
--- NOTE | 2017-01-09 08:10 | History & Physical Bridge Note ---
H&P Re-Evaluation Bridge Note: I have examined the patient, reviewed the History & Physical and in the interval since the performance of the History & Physical I have noted the following changes of clinical significance: No changes noted
[2017-01-09] MEDS ORDERED: BUPIVACAINE 0.5 % 5 MG/1 ML MPF 30ML VIAL ONE (08:23)
[2017-01-09] MEDS ORDERED: GLYCOPYRROLATE INJ 0.2 MG/ML VIAL ONE (09:21)
[2017-01-09] MEDS ORDERED: PROPOFOL IV EMULSION 10 MG/ML 20 ML VIAL IV ONE (09:21)
[2017-01-09] MEDS ORDERED: PHENYLEPHRINE 100MCG/ML 5ML SYR ONE (09:21)
[2017-01-09] MEDS ORDERED: LIDOCAINE HCL 2% 2 ML VIAL (20MG/ML) ONE (09:21)
[2017-01-09] MEDS ORDERED: KETOROLAC TROMETHAMINE 30 MG/ML VIAL ONE (09:21)
[2017-01-09] MEDS ORDERED: NEOSTIGMINE METHYLSULFATE 5 MG/5 ML SYR ONE (09:21)
[2017-01-09] MEDS ORDERED: ROCURONIUM BROMIDE 10 MG/ML 5 ML VIAL IV ONE (09:39)
[2017-01-09] MEDS ORDERED: ONDANSETRON INJ 2 MG/ML 2 ML VIAL IV PRN ×2 (09:45→10:15)
[2017-01-09] MEDS ORDERED: LORAZEPAM 0.5 MG TAB PO PRN (09:45)
[2017-01-09] MEDS ORDERED: HYDROCODONE/ACETAMOPHEN 5/325MG TAB PO PRN (09:45)
[2017-01-09] MEDS ORDERED: MoRPHine SULFATE 4 MG/ML 1 ML CARP\\VIAL IV PRN (09:45)
[2017-01-09] MEDS ORDERED: MoRPHine SULFATE 2 MG/ML CARP IV PRN (09:45)
[2017-01-09] MEDS ORDERED: PROMETHAZINE HCL INJ 25 MG in SODIUM CHLORIDE 0.9% 50ML 50 ML IV PRN (09:45)
--- NOTE | 2017-01-09 09:48 | [facility] Operative Report ---
Operative Report Operative Date Jan 09, 2017. Pre-Operative Diagnosis Cholelithiasis, biliary colic Post-Operative Diagnosis Same as preop Procedure(s) Performed Laparoscopic Cholecystectomy Surgeon Dr. Metzger Business And Financial Counsel Surgeon(s) Ash Strauss PA-C Estimated Blood Loss 10 ML Findings scar tissue in wall of gallbladder Specimens A. Gallbladder and Contents Anesthesia gen Complication(s) None Disposition Recovery Room / PACU I attest to the content of the Intraoperative Record and any orders documented therein. Any exceptions are noted below.
[2017-01-09] MEDS ORDERED: PROMETHAZINE HCL INJ 12.5 MG in SODIUM CHLORIDE 0.9% 50ML 50 ML IV PRN (10:00)
[2017-01-09] MEDS ORDERED: PROMETHAZINE HCL INJ 6.25 MG in SODIUM CHLORIDE 0.9% 50ML 50 ML IV PRN (10:15)
[2017-01-09] MEDS ORDERED: EpHEDrine SULFATE INJ 50 MG/ML AMP IV PRN (10:15)
[2017-01-09] MEDS ORDERED: FENTANYL CITRATE INJ 50 MCG/1 ML 2 ML VIAL IV PRN (10:15)
[2017-01-09] MEDS ORDERED: ATROPINE SULFATE 0.1 MG/ML 5ML SYR IV PRN (10:15)
--- NOTE | 2017-01-09 10:29 | OPERATIVE REPORT ---
DATE OF OPERATION: 01/09/2017 NAME OF OPERATION: Laparoscopic cholecystectomy. PREOPERATIVE DIAGNOSIS: Biliary colic. POSTOPERATIVE DIAGNOSIS: Same with chronic cholecystitis. STAFF SURGEON: Dr. Stevan Metzger. GEOSCIENCES PROFESSOR: Ash Strauss PA-C ANESTHESIA: General. DESCRIPTION OF PROCEDURE: The patient was brought into the operating room and placed on the operating table in the supine position. Her abdomen was prepped and draped in the usual fashion. Pneumatic stockings and orogastric tube were placed. Incision was made just above the umbilicus using 0.5% plain Marcaine to anesthetize all incisions. Veress needle placed and then a pneumoperitoneum produced. There was some gas into the falciform ligament; however, the pneumoperitoneum was adequate. An 11-mm port was placed at the umbilical site and then under visualization, three 5-mm ports were placed. The gallbladder was retracted. It was aspirated of bile. Dissection was carried out at the ranjana hepatis and identifying the cystic duct, which was clipped and transected. Cystic artery identified, clipped and transected. There may have been a small blood branch from the liver bed to the gallbladder either a duct of Luschka or small blood vessel. This was clipped and transected. There was scar tissue in the posterior wall, indicating chronic inflammation. The gallbladder was dissected from the liver bed and placed in an Endobag. After appropriate hemostasis and irrigation, the Endobag was removed through the umbilical site. All ports were then removed. The fascia at the umbilicus closed using interrupted 0 Vicryl suture. Skin closed at the umbilicus using 5-0 Prolene suture and then the other sites closed using subcuticular 4-0 Monocryl and Dermabond. The patient was transferred to recovery room in stable condition. I attest to the content of the Intraoperative Record and any orders documented therein. Any exception s are noted below.
--- NOTE | 2017-01-09 10:39 | Anesthesiology Progress Note ---
Anesthesia Post Op Note Date & Time Jan 09, 2017 at 10:39 Vital Signs Pain Intensity: 0 Vital Signs Past 12 Hours Date Time Temp Pulse Resp B/P (MAP) Pulse Ox O2 Delivery O2 Flow Rate FiO2 01/09/17 10:36 123/65 01/09/17 10:32 59 18 01/09/17 10:32 58 18 98 01/09/17 10:31 131/70 01/09/17 10:30 36.6 58 18 131/70 98 Nasal Cannula 2 01/09/17 10:27 57 10 99 01/09/17 10:27 58 10 01/09/17 10:26 139/72 01/09/17 10:22 60 14 98 01/09/17 10:22 61 14 01/09/17 10:21 126/64 01/09/17 10:17 62 13 01/09/17 10:17 61 13 98 01/09/17 10:16 146/71 01/09/17 10:14 61 26 01/09/17 10:14 63 26 96 01/09/17 10:11 151/72 01/09/17 10:09 68 17 98 01/09/17 10:09 68 17 01/09/17 10:08 65 20 97 01/09/17 10:08 65 20 01/09/17 10:06 157/74 01/09/17 10:03 66 12 01/09/17 10:03 66 12 98 01/09/17 10:01 158/104 01/09/17 09:58 73 16 97 01/09/17 09:58 73 16 01/09/17 09:56 168/94 01/09/17 09:54 170/90 01/09/17 09:53 36.6 75 20 170/90 98 Oxymask 10 01/09/17 06:44 36.5 66 18 136/72 (93) 98 Room Air Notes Mental Status: alert / awake / arousable, participated in evaluation Pt Amnestic to Procedure: Yes Nausea / Vomiting: adequately controlled Pain: adequately controlled Airway Patency, RR, SpO2: stable & adequate BP & HR: stable & adequate Hydration State: stable & adequate Anesthetic Complications: no major complications apparent
[2017-01-09] MEDS ORDERED: HYDR-5688 PO (10:53)
--- NOTE | 2017-01-09 11:32 | Discharge Instructions ---
Discharge Instructions Date of Service Jan 09, 2017. Admission Reason for Admission: Cholelithiasis Discharge Discharge Diagnosis / Problem: biliary colic Discharge Goals Goal(s): Decrease discomfort, Improve function, Improve disease control Activity Recommendations Activity Limitations: as noted below Lifting Limitations: no more than 25 pounds Exercise/Sports Limitations: until after follow-up appointment May Resume Sexual Activity: when tolerated Shower/Bathe: tomorrow Driving or Machine Use: resume 3 days after discharge SPECIAL CARE INSTRUCTIONS: * Cover incisions and change daily for comfort/drainage. * May leave uncovered with dermabond * May use ibuprofen for pain as tolerated. * Expect some swelling and bruising. Call your doctor if: * Temperature above 101 degrees * Pain not relieved by pain medicine ordered * There is increased drainage or redness from any incision * You have any unanswered questions or concerns [phone]. FOLLOW UP VISIT: If not already scheduled, please call the office for a follow-up visit. for next week- some suture removal OFFICE PHONE NUMBER: Dr. Metzger Office . Current Hospital Diet Patient's current hospital diet: Regular Diet Discharge Diet Recommended Diet: Regular Diet Procedures Procedures Performed: Laparoscopic Cholecystectomy Pending Studies Studies pending at discharge: no Laboratory Results Lipid Panel Test 11/09/16 09:11 Range/Units Triglycerides Level 172 H 0-150 mg/dl Cholesterol Level 195 0-200 mg/dl HDL Cholesterol 52 mg/dl Cholesterol/HDL Ratio 3.8 LDL Cholesterol, Calculated 109 mg/dl Medical Emergencies . Who to Call and When: Medical Emergencies: If at any time you feel your situation is an emergency, please call 911 immediately. . Non-Emergent Contact Non-Emergency issues call your: Primary Care Provider, Surgeon . "Provider Documentation" section prepared by Stevan Metzger. . VTE Core Measure Inpt VTE Proph given/why not?: SCD's
[2017-01-09] MEDS ORDERED: LACTATED RINGER'S 1000ML 1,000 ML IV SCH (11:45)
--- NOTE | 2017-01-09 11:59 | Medical Consult ---
Consultation Note Date of Service Jan 09, 2017. Consultation Note post op consult [id number]
--- NOTE | 2017-01-09 13:19 | CONSULTATION REPORT ---
DATE OF CONSULTATION: 01/09/2017 This is a level 2 consultation H&P, 25 minutes. PHYSICIAN REQUESTING FOR CONSULTATION: Dr. Metzger. REASON FOR CONSULTATION: Medical management post-operations for laparoscopic cholecystectomy. HISTORY OF PRESENT ILLNESS: A 61-year-old white female with a significant past medical history of anxiety, dyslipidemia, hypertension, hypothyroidism who was admitted to Dr. Metzger's service for the scheduled procedure because of cholelithiasis and biliary colic. The patient has procedure done for laparoscopic cholecystectomy this morning. Now, is postop. The patient is awake, alert, and orientated, mild abdominal pain which helped by pain medication. Currently, no pain if no palpation. Denied fever or chills. Denied cough, sputum, shortness of breath. Denied chest pain, palpitation, lower extremity swelling. Denied nausea, vomiting. Denied diarrhea or constipation. Denied dysuria, urgency or frequencies. Denied facial droop, slurry speeches or local weakness. Denied anxiety. ALLERGIES: No known drug allergies. PAST MEDICAL HISTORY: Like I mentioned in the above which include anxiety, hypothyroidism, dyslipidemia, and hypertension. PAST SURGICAL HISTORY: Include cholecystectomy and TAHBSO. FAMILY HISTORY: Include colon cancer. SOCIAL HISTORY: Denied tobacco abuse disorder, denied alcohol abuse disorder, denied illicit drug abuse. MEDICATIONS: Taking at home which include atenolol 25 mg p.o. q.a.m., Lexapro 5 mg p.o. q.a.m., levothyroxine 75 mg p.o. q.a.m., lisinopril 20 mg p.o. at bedtime, Ativan 0.5 mg p.o. b.i.d. p.r.n. for anxiety, lovastatin 20 mg p.o. q.a.m. Other medicines include aspirin 81 mg p.o. q.a.m., [place] 5/325 1-2 tab p.o. 6 hours p.r.n. for the pain, multiple vitamin 1 tab p.o. daily, tramadol 50 mg q. 8 hours p.r.n. for the pain, vitamin E 400 international units 1 tab p.o. daily. Other medicines include Astepro 0.15% nasal spray, calcium with vitamin D 1 tab p.o. daily. PHYSICAL EXAMINATION: VITAL SIGNS: Temperature is 36.6, pulse 61, respiration rate 18, blood pressure 116/67, pulse ox was 91% in room air. GENERAL: The patient is a white female, awake, alert and orientated, conversational, follows all commands. HEAD: Normocephalic. EYES: Pupils equal, round responds to light. EARS: Ear was normal. NOSE: Normal. MOUTH: Conjunctivae no injection. Sclerae nonicterus. Moist mucous membrane. NECK: Supple. Thyroid no enlargement. Trachea in the midline. HEART: Regular rhythm. S1, S2. LUNGS: Decreased breathing sounds. There was no wheezing, rhonchi or crackles. ABDOMEN: Mild tender. Bowel sound positive. No rebound, no guarding. Bilateral CVA was nontender. GENITOURINARY AND RECTAL: Deferred. BILATERAL LOWER EXTREMITIES: No swelling. Homans sign was negative. Calf was nontender. SKIN: Has no rashes. NEUROLOGICAL EVALUATION: Cranial nerve through XII was intact. There was no local deficits. LABORATORY STUDIES: Preop which shows on January 09: WBC 4, hemoglobin 14, platelet 119. PT/INR was 10/1. Sodium 139; otherwise, BMP was not remarkable and kidney function, BUN was 14, creatinine 0.7. Liver function test was within normal limits. Triglyceride 172, HDL 52, TSH 0.5. Today's Liver function test was within normal limits. ASSESSMENT AND PLAN: 1. Cholelithiasis status post laparoscopic cholecystectomy, these conditions and pain management. 2. Deep vein thrombosis prophylaxis, PT, OT and discharge plan will be per primary team. 3. Medical condition of anxiety. 4. Dyslipidemia. 5. Hypertension. 6. Hypothyroidism. These medical conditions are stable. We will continue home medications. Currently, aspirin is on hold. I believe postop when the patient going home, she should be okay to resume aspirin p.o. I will order incentive spirometries, encourage patient deep breathing for the lung expansion, avoid aspiration. The patient's platelet level was at 119, in the preop lab. Primary team has ordered a CBC plus differential tomorrow morning already and BMP as well and liver profile tomorrow. Will need to follow up platelet levels. The patient currently is on SCD for DVT prophylaxis and I agree with that. Because of platelet level is low at 119, I will not recommend heparin product for DVT prophylaxis. Thank you for the chance to involve in the care of the patient. We will continue to follow up as long as patient in the hospital. ZOEY
[2017-01-09] MEDS: CEFUROXIME IV 1,500 MG in DEXTROSE 5% 100ML 100 ML IV SCH ×2 (13:35→22:06)
[2017-01-09] MEDS ORDERED: IV FLUIDS COMPLETED PRN (13:45)
[2017-01-09] MEDS: HYDROCODONE/ACETAMOPHEN 5/325MG TAB PO PRN ×2 (15:19→22:07)
[2017-01-09] MEDS ORDERED: LISINOPRIL 20 MG TAB PO SCH (21:00)
[2017-01-09] MEDS ORDERED: LOVASTATIN 20 MG TAB PO SCH (21:00)
[2017-01-09] MEDS ORDERED: COUGH DROP (SUGAR FREE) LOZ 24 LOZ/1 BOX PO PRN (21:30)
[2017-01-09] MEDS ORDERED: NURSING DECISION MEDICATION ORDER SCH (21:30)
[2017-01-10 03:28] VITALS: BP 126/67; PULSE 66; TEMP 36.7; O2SAT 95
[2017-01-10] MEDS: HYDROCODONE/ACETAMOPHEN 5/325MG TAB PO PRN ×2 (03:38→07:44)
[2017-01-10] MEDS ORDERED: LEVOTHYROXINE 75 MCG TAB PO SCH (06:00)
[2017-01-10 06:15] LABS: HEMATOCRIT 39.5 % (37-47); MEAN CELL VOLUME 91.4 fL (80-100); MEAN CORPUSCULAR HEMOGLOBIN 29.2 pg (25-34); MEAN CORPUSCULAR HGB CONC 31.9 g/dl (32-36); MEAN PLATELET VOLUME 12.1 fL (7.4-10.4); PLATELET COUNT 104 K/uL (130-400); RED BLOOD COUNT 4.32 M/uL (4.2-5.4); WHITE BLOOD COUNT 6.53 K/uL (4.8-10.8)
[2017-01-10 06:55] LABS: BUN/CREATININE RATIO 17.3 (10-20); CALCIUM 8.8 mg/dl (8.5-10.1); CREATININE 0.74 mg/dl (0.60-1.20); POTASSIUM 4.2 mmol/L (3.5-5.1)
[2017-01-10 06:57] LABS: ALB/GLOB RATIO 0.9 (0.9-2)
--- NOTE | 2017-01-10 07:17 | DISCHARGE SUMMARY ---
PRINCIPAL DIAGNOSIS: Biliary colic. PROCEDURES: The patient underwent laparoscopic cholecystectomy. HISTORY OF PRESENT ILLNESS: The patient is a 61-year-old female who has been having upper abdominal pain and noted on ultrasound, abnormal stones and sludge. HOSPITAL COURSE: The patient was brought into the hospital on 01/09/2017, and taken electively to the operating room where she underwent laparoscopic cholecystectomy. The procedure went very well. She has done well overnight and is felt stable for discharge home today to be followed in the surgical clinic next week.
--- NOTE | 2017-01-10 07:46 | Anesthesiology Progress Note ---
Anesthesia Post Op Note Date & Time Jan 10, 2017 at 07:46 Vital Signs Pain Intensity: 4.0 Vital Signs Past 12 Hours Date Time Temp Pulse Resp B/P (MAP) Pulse Ox O2 Delivery O2 Flow Rate FiO2 01/10/17 03:28 36.7 66 14 126/67 (86) 95 Room Air 01/09/17 23:30 36.7 64 14 138/75 (96) 95 Room Air 01/09/17 23:25 Room Air Notes Mental Status: alert / awake / arousable, participated in evaluation Pt Amnestic to Procedure: Yes Nausea / Vomiting: adequately controlled Pain: adequately controlled Airway Patency, RR, SpO2: stable & adequate BP & HR: stable & adequate Hydration State: stable & adequate Anesthetic Complications: no major complications apparent
[2017-01-10 07:51] VITALS: BP 120/71; PULSE 64; TEMP 36.7; O2SAT 95
[2017-01-10 08:51] VITALS: BP 114/69; PULSE 65
[2017-01-10] MEDS ORDERED: ESCITALOPRAM OXALATE 10 MG TAB PO SCH (09:00)
[2017-01-10 10:14] VITALS: BP 114/69; PULSE 65; TEMP 36.7; O2SAT 95
== END 2017-01-10 10:50 | disposition home or self-care (01) ==
LOC: C.ACU 06:14 → C.MSW 09:46 → ENRESERV 10:17
PROVIDERS: ADMIT Surgery; ATTEND Surgery
DX: K80.12 Calculus of gallbladder with acute and chronic cholecystitis without obstruction (principal); I10 Essential (primary) hypertension; E78.5 Hyperlipidemia, unspecified; K76.0 Fatty (change of) liver, not elsewhere classified; M50.90 Cervical disc disorder, unspecified, unspecified cervical region; E03.9 Hypothyroidism, unspecified; D18.03 Hemangioma of intra-abdominal structures; L40.9 Psoriasis, unspecified; Z79.82 Long term (current) use of aspirin; Z90.49 Acquired absence of other specified parts of digestive tract; Z90.710 Acquired absence of both cervix and uterus; Z90.79 Acquired absence of other genital organ(s); Z90.722 Acquired absence of ovaries, bilateral; Z80.0 Family history of malignant neoplasm of digestive organs; Z83.3 Family history of diabetes mellitus

== ENCOUNTER → 2017-03-21 | Outpatient (CLI) | payer BC ==
[~2017-03-21] MED LIST changes: -CEFUROXIME IV 1,500 MG in DEXTROSE 5% 100ML IV SCH; +HYDR-5688 PO; -LACTATED RINGER'S 1000ML 1,000 ML IV SCH
[2017-03-21 18:37] LABS: BLOOD UREA NITROGEN 18 mg/dl (7-18); CREATININE 0.94 mg/dl (0.60-1.20)
== END | disposition home or self-care (01) ==
LOC: C.LABPBG 15:25
PROVIDERS: ATTEND Family Medicine
DX: D18.03 Hemangioma of intra-abdominal structures (principal)

== ENCOUNTER → 2017-03-24 | Outpatient (CLI) | payer BC ==
--- NOTE | 2017-03-24 15:06 | DIAGNOSTIC IMAGING REPORT ---
LIVER COMBO HISTORY: 61 years-old Female D18.03 Liver [id number] follow-up study to assess liver hemangioma. No acute abdominal symptoms reported. Status post prior cholecystectomy COMPARISON: Liver MRI 04/02/2015, tagged RBC study 04/06/2015, ultrasound of the liver 02/20/2015 TECHNIQUE: Multiplanar multisequence MRI of the liver was obtained both with and without the use of 10 mL Eovist utilizing liver protocol FINDINGS: Lung bases appear clear. Inferior heart is unremarkable. The spleen, pancreas and adrenal glands are unremarkable. Gallbladder appears surgically absent. The bowel, aorta and retroperitoneal structures appear unremarkable. 4.5 cm cyst of the right kidney. Soft tissues and bones are also within normal limits. There is significant loss of signal throughout the liver on the out of phase images compatible with hepatic steatosis. Mild fatty sparing is again seen adjacent to the ranjana hepatis. No ascites identified. Redemonstrated is a large anterior right hepatic lobe lobular mass adjacent to the IVC interposed between the middle and right hepatic veins within segment VIII measuring approximately 5.9 x 4.3 cm on image 26 of series 1001, previously measuring 6.1 x 4.2 cm. This lesion again demonstrates increased T2 signal with peripheral nodular discontinuous enhancement with central filling and isointensity on the delayed 20 minute images. These findings are unchanged from comparison study. Arterially enhancing 7 mm T2 hyperintense lesion within segment 6 of the right hepatic lobe appears isointense on the T2 images and is unchanged, likely reflecting flash filling hemangioma. Again, this lesion demonstrates persistent enhancement characteristics. 9 mm nonenhancing hepatic cyst seen within segment 7. No new or enlarging lesions of the liver identified. No biliary ductal dilation or biliary filling defects. IMPRESSION: 1. Unchanged size and appearance of the large mass of the right hepatic lobe demonstrating imaging characteristics most compatible with a hepatic hemangioma. 2. 8 mm flash filling hemangioma of the right hepatic lobe also appears unchanged. 3. Hepatic steatosis. 4. Prior cholecystectomy. The above report was generated using voice recognition software. It may contain grammatical, syntax or spelling errors. Electronically signed by: Shabbir Herring M.D. 03/24/2017 3:05 PM Dictated Date/Time: 03/24/2017 12:51 PM
== END | disposition home or self-care (01) ==
LOC: C.MRI 11:10
PROVIDERS: ATTEND Family Medicine
DX: D18.03 Hemangioma of intra-abdominal structures (principal); K76.0 Fatty (change of) liver, not elsewhere classified

== ENCOUNTER → 2017-05-10 | Outpatient (CLI) | payer BC ==
[~2017-05-10] MED LIST changes: -HYDR-5688 PO
[2017-05-10 14:08] LABS: HEMATOCRIT 45.5 % (37-47); HEMOGLOBIN 15.1 g/dL (12.0-16.0); MEAN CELL VOLUME 89.9 fL (80-100); MEAN CORPUSCULAR HEMOGLOBIN 29.8 pg (25-34); MEAN CORPUSCULAR HGB CONC 33.2 g/dl (32-36); PLATELET COUNT 157 K/uL (130-400); RED CELL DISTRIBUTION WIDTH CV 13.8 % (11.5-14.5); WHITE BLOOD COUNT 7.85 K/uL (4.8-10.8)
[2017-05-10 16:36] LABS: ALBUMIN 4.2 gm/dl (3.4-5.0); ALT/SGPT 78 U/L (12-78); BLOOD UREA NITROGEN 22 mg/dl (7-18); CALCIUM 9.7 mg/dl (8.5-10.1); CARBON DIOXIDE 28 mmol/L (21-32); CHOLESTEROL 224 mg/dl (0-200); CREATININE 0.83 mg/dl (0.60-1.20); GLUCOSE 109 mg/dl (70-99); POTASSIUM 4.5 mmol/L (3.5-5.1); SODIUM 136 mmol/L (136-145)
[2017-05-10 16:46] LABS: ALKALINE PHOSPHATASE 99 U/L (45-117); AST/SGOT 27 U/L (15-37); LDL CHOLESTEROL CALCULATED 145 mg/dl; TOTAL PROTEIN 8.2 gm/dl (6.4-8.2)
== END | disposition home or self-care (01) ==
LOC: C.LABPBG 08:32
PROVIDERS: ATTEND Family Medicine
DX: I10 Essential (primary) hypertension (principal); E03.9 Hypothyroidism, unspecified; E78.5 Hyperlipidemia, unspecified

== ENCOUNTER → 2017-05-15 | Day surgery (SDC) | payer BC ==
[2017-04-28 07:50] VITALS: BMI 25.0
[~2017-05-15] VITALS: Ht 162.6 cm; Wt 67.3 kg
[~2017-05-15] MED LIST changes: +ATROPINE SULFATE 0.1 MG/ML 5ML SYR IV PRN; +EpHEDrine SULFATE INJ 50 MG/ML AMP IV PRN; +FENTANYL CITRATE INJ 50 MCG/1 ML 2 ML VIAL ONE; +LIDOCAINE HCL 2% 2 ML VIAL (20MG/ML) ONE; +PROPOFOL IV EMULSION 10 MG/ML 20 ML VIAL IV ONE; +SODIUM CHLORIDE 0.9% 500ML 500 ML IV ONE
[2017-05-15 08:53] VITALS: Ht 162.6 cm; Wt 67.3 kg
--- NOTE | 2017-05-15 09:09 | Endo History and Physical ---
History & Physical Date of Service: May 15, 2017. Chief Complaint: SCREENING AND HUFF SYNDROME Referring Physician: DR ORELLANA History of Present Illness 61 yo CF who presents for EGD and Colonoscopy secondary to screening for Huff Syndrome. Past Surgical History Hx Cardiac Surgery: No Hx Internal Defibrillator: No Hx Pacemaker: No Hx Abdominal Surgery: Yes (VICENTE BSO, NATE) Hx of Implantable Prosthesis: No Hx Post-Op Nausea and Vomiting: No Hx Cancer Surgery: No Hx Thoracic Surgery: No Hx Orthopedic: Yes (RT CTR) Hx Urinary Tract Surgery: No Family History Colon CA Social History Smoking Status: Never Smoker Hx Substance Use: No Hx Alcohol Use: Yes (1 DRINK/WEEK OR LESS) Allergies Coded Allergies: No Known Allergies (Verified , 05/15/17) Current Medications Reported Home Medications Medications Dose Route/Sig Max Daily Dose Days Date Category Ultram (Tramadol HCl) 50 Mg Tab 50 Mg PO Q8H PRN 01/03/17 Reported Ativan (Lorazepam) 0.5 Mg Tab 0.5 Mg PO BID PRN 01/03/17 Reported Zestril (Lisinopril) 20 Mg Tab 20 Mg PO HS 01/03/17 Reported Astepro (Azelastine Hcl) 0.15 % Spr 2 [place] FRANCES BID 01/03/17 Reported Calcium + D (Calcium Carbonate-Vitamin D) 1 Tab Tab 1 Tab PO QAM 01/03/17 Reported Mevacor (Lovastatin) 20 Mg Tab 20 Mg PO QPM 05/04/16 Reported Tenormin (Atenolol) 25 Mg Tab 50 Mg PO QAM 05/04/16 Reported Synthroid (Levothyroxine Sodium) 75 Mcg Tab 75 Mcg PO QAM 05/04/16 Reported Lexapro (Escitalopram Oxalate) 5 Mg Tab 5 Mg PO QAM 05/04/16 Reported Vitamin E 400 Iu (Vitamin E) 400 Unit Cap 400 Inter.unit PO QAM 05/04/16 Reported Multivitamin (Multivitamins) Tab 1 Tab PO QAM 05/04/16 Reported [Liver Health Complex] 2 Tab PO QAM 05/04/16 Reported Aspirin Chewable (Aspirin) 81 Mg Chew 81 Mg PO QPM 05/04/16 Reported Vital Signs Weight (Kilograms): 67.27 Height (Feet): 5 Height (Inches): 4 Date Time Temp Pulse Resp B/P (MAP) Pulse Ox O2 Delivery O2 Flow Rate FiO2 05/15/17 08:51 36.5 73 18 125/66 (85) 99 Room Air Physical Exam General Appearance: WD/WN, no apparent distress Respiratory/Chest: Auscultation: breath sounds normal Cardiovascular: Heart Auscultation: RRR Abdomen: Bowel Sounds: normal Inspection & Palpation: soft, non-distended, no tenderness, guarding & rebound Assessment and Plan Assessment: 61 yo CF who presents for EGD and Colonoscopy secondary to screening for Huff Syndrome. Plan: Proceed with EGD and Colonoscopy.
--- NOTE | 2017-05-15 10:41 | Discharge Instructions ---
Endoscopy Patient Instructions Date / Procedure(s) Performed May 15, 2017. Colonoscopy, EGD Allergy Information Coded Allergies: No Known Allergies (Verified , 05/15/17) Discharge Date / Findings May 15, 2017. EGD: Non-obstructing Schatzki's Ring Colonoscopy: Diverticulosis and Hemorrhoids Medication Instructions Stopped Medication(s): ASPIRIN LAST DOSE 05/08/17 OK to resume all medications today as prescribed Reported Home Medications Medications Dose Route/Sig Max Daily Dose Days Date Category Ultram (Tramadol HCl) 50 Mg Tab 50 Mg PO Q8H PRN 01/03/17 Reported Ativan (Lorazepam) 0.5 Mg Tab 0.5 Mg PO BID PRN 01/03/17 Reported Zestril (Lisinopril) 20 Mg Tab 20 Mg PO HS 01/03/17 Reported Astepro (Azelastine Hcl) 0.15 % Spr 2 [place] FRANCES BID 01/03/17 Reported Calcium + D (Calcium Carbonate-Vitamin D) 1 Tab Tab 1 Tab PO QAM 01/03/17 Reported Mevacor (Lovastatin) 20 Mg Tab 20 Mg PO QPM 05/04/16 Reported Tenormin (Atenolol) 25 Mg Tab 50 Mg PO QAM 05/04/16 Reported Synthroid (Levothyroxine Sodium) 75 Mcg Tab 75 Mcg PO QAM 05/04/16 Reported Lexapro (Escitalopram Oxalate) 5 Mg Tab 5 Mg PO QAM 05/04/16 Reported Vitamin E 400 Iu (Vitamin E) 400 Unit Cap 400 Inter.unit PO QAM 05/04/16 Reported Multivitamin (Multivitamins) Tab 1 Tab PO QAM 05/04/16 Reported [Liver Health Complex] 2 Tab PO QAM 05/04/16 Reported Aspirin Chewable (Aspirin) 81 Mg Chew 81 Mg PO QPM 05/04/16 Reported Provider Instructions Activity Restrictions - No exercising or heavy lifting for 24 hours. - Do not drink alcohol the day of the procedure. - Do not drive a car or operate machinery until the day after the procedure. - Do not make any important decisions or sign important papers in 24 hours after the procedure. Following Day: - Return to full activity which may include returning to work/school. Diet Start your diet with liquids and light foods (jello, soup, juice, toast). Then eat your usual diet if not nauseated. Treatment For Common After Affects For mild abdominal pain, bloating, or excessive gas: - Rest - Eat lightly - Lie on right side Follow-Up Information Follow-up with DR ORELLANA as scheduled Anesthesia Information What You Should Know You have had a procedure that required some medicine to reduce anxiety and discomfort. This treatment is called moderate sedation. After receiving the treatment, you may be sleepy, but you will be able to breathe on your own. The effects of the treatment may last for several hours. Follow these instructions along with Activity/Diet recommendations noted above: * Do NOT do anything where dizziness or clumsiness would be dangerous. * Rest quietly at home today, then you can be up and about tomorrow. * Have a responsible person stay with you the rest of today. * You may have had an I.V. today. If so, you may take the dressing off later today. Recommendations Call your doctor if: * Trouble breathing * Continuous vomiting for more than 24 hours * Temperature above 101 degrees * Severe abdominal pain or bloating * Pain not relieved by pain medicine ordered * There is increased drainage or redness from any incision * A large amount of rectal bleeding greater than 2-3 tablespoons. (If you had a polyp/s removed or have hemorrhoids, a small amount of blood - from the rectum is to be expected.) * You have any unanswered questions or concerns. IN THE EVENT OF A SERIOUS EMERGENCY, GO TO THE NEAREST EMERGENCY ROOM Your discharge instructions were prepared by provider Florencio Rowan. Patient Instructions Signature Page Ros Burnett Patient (or Guardian) Signature/Date: I have read and understand the instructions given to me by my caregivers. Caregiver/RN/Doctor Signature/Date: The above-named patient and/or guardian has received patient instructions on this date. + Original Patient Signature Page (only) stays with chart. Please make copy for patient.
--- NOTE | 2017-05-15 10:48 | GI REPORT ---
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 Estimated Blood Loss: Estimated blood loss: none. Procedure: Pre-Anesthesia Assessment: - Prior to the procedure, a History and Physical was performed, and patient medications and allergies were reviewed. The patient's tolerance of previous anesthesia was also reviewed. The risks and benefits of the procedure and the sedation options and risks were discussed with the patient. All questions were answered, and informed consent was obtained. Prior Anticoagulants: The patient has taken aspirin, last dose was 7 days prior to procedure. ASA Grade Assessment: II - A patient with mild systemic disease. After reviewing the risks and benefits, the patient was deemed in satisfactory condition to undergo the procedure. After obtaining informed consent, the endoscope was passed under direct vision. Throughout the procedure, the patient's blood pressure, pulse, and oxygen saturations were monitored continuously. The Scope was introduced through the mouth, and advanced to the second part of duodenum. The upper GI endoscopy was accomplished without difficulty. The patient tolerated the procedure well. Findings: A non-obstructing Schatzki ring (acquired) was found at the gastroesophageal junction. The stomach was normal. The examined duodenum was normal. Impression: - Non-obstructing Schatzki ring. - Normal stomach. - Normal examined duodenum. - No specimens collected. Recommendation: - Resume previous diet. - Continue present medications. - Repeat upper endoscopy in 1 year for surveillance. - Return to primary care physician as previously scheduled. Florencio oRwan DO 05/15/2017 10:47:42 AM This report has been signed electronically. Note Initiated On: 05/15/2017 10:03 AM I attest to the content of the Intraoperative Record and orders documented therein, exceptions below
--- NOTE | 2017-05-15 10:50 | GI REPORT ---
Procedure Date: 05/15/2017 10:02 AM Procedure: Colonoscopy Indications: Church Syndrome Medicines: Monitored Anesthesia Care Complications: No immediate complications. Estimated Blood Loss: Estimated blood loss: none. Procedure: Pre-Anesthesia Assessment: - Prior to the procedure, a History and Physical was performed, and patient medications and allergies were reviewed. The patient's tolerance of previous anesthesia was also reviewed. The risks and benefits of the procedure and the sedation options and risks were discussed with the patient. All questions were answered, and informed consent was obtained. Prior Anticoagulants: The patient has taken aspirin, last dose was 7 days prior to procedure. ASA Grade Assessment: II - A patient with mild systemic disease. After reviewing the risks and benefits, the patient was deemed in satisfactory condition to undergo the procedure. After I obtained informed consent, the scope was passed under direct vision. Throughout the procedure, the patient's blood pressure, pulse, and oxygen saturations were monitored continuously. The scope was introduced through the anus and advanced to the cecum, identified by appendiceal orifice and ileocecal valve. The colonoscopy was performed without difficulty. The patient tolerated the procedure well. The quality of the bowel preparation was good. The ileocecal valve, appendiceal orifice, and rectum were photographed. Findings: The perianal and digital rectal examinations were normal. Multiple small-mouthed diverticula were found in the sigmoid colon. Non-bleeding internal hemorrhoids were found during retroflexion. The hemorrhoids were small. Impression: - Diverticulosis in the sigmoid colon. - Non-bleeding internal hemorrhoids. - No specimens collected. Recommendation: - Resume previous diet. - Continue present medications. - Repeat colonoscopy in 1 year for surveillance. - Return to primary care physician as previously scheduled. Florencio Rowan DO 05/15/2017 10:49:20 AM This report has been signed electronically. Note Initiated On: 05/15/2017 10:02 AM I attest to the content of the Intraoperative Record and orders documented therein, exceptions below
[2017-05-15 11:16] VITALS: BP 134/71; PULSE 64; O2SAT 97
--- NOTE | 2017-05-15 11:27 | Anesthesiology Progress Note ---
Anesthesia Post Op Note Date & Time May 15, 2017 at 11:27 Vital Signs Pain Intensity: 0 Vital Signs Past 12 Hours Date Time Temp Pulse Resp B/P (MAP) Pulse Ox O2 Delivery O2 Flow Rate FiO2 05/15/17 11:16 64 18 134/71 (92) 97 Room Air 05/15/17 11:01 63 18 125/63 (83) 97 Room Air 05/15/17 10:47 36.2 70 18 134/73 (93) 97 Room Air 05/15/17 08:51 36.5 73 18 125/66 (85) 99 Room Air Notes Mental Status: alert / awake / arousable, participated in evaluation Pt Amnestic to Procedure: Yes Nausea / Vomiting: adequately controlled Pain: adequately controlled Airway Patency, RR, SpO2: stable & adequate BP & HR: stable & adequate Hydration State: stable & adequate Anesthetic Complications: no major complications apparent
== END | disposition home or self-care (01) ==
LOC: C.GI 08:33
PROVIDERS: ATTEND Internal Medicine
DX: Z12.11 Encounter for screening for malignant neoplasm of colon (principal); Z15.09 Genetic susceptibility to other malignant neoplasm; K22.2 Esophageal obstruction; K57.30 Diverticulosis of large intestine without perforation or abscess without bleeding; K64.8 Other hemorrhoids; Z80.0 Family history of malignant neoplasm of digestive organs; Z90.710 Acquired absence of both cervix and uterus; Z90.49 Acquired absence of other specified parts of digestive tract; Z90.722 Acquired absence of ovaries, bilateral; Z90.79 Acquired absence of other genital organ(s); Z79.82 Long term (current) use of aspirin
CPT/HCPCS: 43235; G0105